=== PATIENT | female | born 2000 | race Two or more races ===

== ENCOUNTER 2023-03-04 10:15 | Emergency (ER) | payer MEDICAID ==
[~2023-03-04] VITALS: Ht 165.1 cm; Wt 63.6 kg
[2023-03-04 10:57] VITALS: TEMP 98.2
[2023-03-04] MEDS ORDERED: TRAZ-252 PO (10:57)
[2023-03-04] MEDS ORDERED: LAMO25TA25 PO (10:57)
[2023-03-04] MEDS ORDERED: HYDR-4808 PO (10:57)
[2023-03-04 11:03] LABS: COVID AG,FIA SOURCE NASAL SWAB
[2023-03-04 13:32] LABS: INFLUENZA TYPE A NEGATIVE FOR TYPE A (NEGATIVE); INFLUENZA TYPE B NEGATIVE FOR TYPE B (NEGATIVE)
[2023-03-04] MEDS ORDERED: AZIT250T9 PO (16:23)
[2023-03-04] MEDS ORDERED: ALBU18HF12 IH (16:23)
[2023-03-04 16:30] VITALS: BP 101/64; PULSE 74; RESP 17
== END 2023-03-04 16:42 | disposition still patient (30) ==
LOC: EMS 10:18
DX: J40 Bronchitis, not specified as acute or chronic (principal); F12.90 Cannabis use, unspecified, uncomplicated; Z85.9 Personal history of malignant neoplasm, unspecified; Z88.5 Allergy status to narcotic agent; Z91.011 Allergy to milk products; Z20.822 Contact with and (suspected) exposure to COVID-19
CPT/HCPCS: 71045; 87804; 99284